=== PATIENT | female | born 1995 | race Caucasian/White ===

== ENCOUNTER 2023-08-27 12:48 | Emergency (ER) | payer OTHER, SELFPAY ==
[2023-08-27 12:55] VITALS: BP 123/84
--- NOTE | 2023-08-27 14:06 | ED.GENMED ---
History of Present Illness
General
Chief Complaint: Musculo-Skeletal Complaint
Source: patient
Time Seen by Provider: 08/27/23 13:27
Travel History
Have you had any contact with someone who has COVID-19?: No
Do you have any symptoms of coronavirus? Fever > 100 degrees, chills, cough, shortness of breath, sore throat, loss of taste or smell, muscle aches, or headache?: No
History of Present Illness
History of Present Illness:
27-year-old female presenting to the emergency department for evaluation of right ankle pain, edema, ecchymosis after slipping on ice yesterday morning, difficulty ambulating since that time. Symptoms worsened this morning prompting her to come to
the ER today. She has been taking Tylenol for pain with some relief. Denies any previous history of injury or surgery. No other concerns.
Past History
Past History
ED Past Medical History: Psychiatric
ED Past Surgical History: Tonsilectomy
Social History
Tobacco: Non-smoker
Alcohol: Occasional
Drug: None
Personal: Single
Living: with family
Review of Systems
Review of Systems
All Other Systems: ROS reviewed and negative except as documented in HPI and ROS
Phy Exam
Physical Exam
Physical Exam:
GENERAL: Alert , in no apparent distress
EYE: conjunctiva clear
Head: Normocephalic atraumatic
NECK: Supple,
ENT: mmm.
LUNGS: no acute respiratory distress
NEUROLOGICAL: Alert and oriented
SKIN: Warm and dry, skin intact.
MUSCULOSKELETAL: Right lower extremity: Mild to moderate soft tissue swelling with ecchymosis along the lateral aspect of the ankle extending into the distal third of the lateral lower leg. There is significant tenderness over the lateral
malleolus. No tenderness at the base of the fifth metatarsal or proximal tib-fib region. No laxity of the calcaneal tendon. Easily palpable pedal and tibial pulses. Cap refill less than 2 seconds. Sensation grossly intact to light touch.
Remainder of extremity is within normal limits and without signs of trauma.
PSYCH: Normal and appropriate interaction.
Scores
Heart Failure Risk
Heart Failure Risk Score: Not Applicable
Heart Score for Chest Pain Patients
STEMI patient?: Not applicable
Withdrawal Assessment of Alcohol
Withdrawal Assessment Completed?: Not applicable
Course
Orders/Labs/Results
Orders:
Orders
08/27/23 13:00
Ankle, Right 3 view CR [CR Ankle - Right Min 3 Views *] Urgent
Comment:
Reason For Exam: pain injury
Vital Signs
Initial and Last Documented VS:
Initial Vital Signs
Temp Pulse Resp BP Pulse Ox
97.4 F 106 16 123/84 95
08/27/23 12:55 08/27/23 12:55 08/27/23 12:55 08/27/23 12:55 08/27/23 12:55
Last Documented Vital Signs
Temp Pulse Resp BP Pulse Ox
97.4 F 106 16 123/84 95
08/27/23 12:55 08/27/23 12:55 08/27/23 12:55 08/27/23 12:55 08/27/23 12:55
Procedures
Splinting/Sling Placement
Right Lower Leg:
Procedure completed by: Clover
Pre-splint extermity exam: neurovascular intact
Type of splint: posterior short leg
Splint material: other (3 inch Ortho-Glass)
Splint checked by provider?: Yes
Normal distal neurovascular exam?: Yes
MDM/Problems Addressed
Differential Diagnosis Includes:
Fracture, sprain, contusion
MDM/Problems Addressed:
27-year-old female presenting the emergency department for evaluation of right ankle injury yesterday after slipping on ice. X-ray was ordered from triage and reveals a lateral malleolus fracture. Patient was splinted as above. RICE
recommendations advised. Information for orthopedics was provided. Patient is otherwise stable for discharge home.
*Critical Care Note
Total Time (30-74mins, 75-104mins- exclusive of procedures): Not Applicable
ED Attending Note
-
Portions of this chart may have been created with voice recognition software.� Occasional wrong word or��sound alike� substitutions may have occurred due to the inherent limitations of voice recognition software.
Discharge Plan
Departure
Patient Disposition: Home (Routine Discharge)
Date of Disposition: 08/27/23
Time of Disposition: 14:06
Patient with high blood pressure during this ER visit?: No
Discharge Problem:
Fracture of lateral malleolus of right ankle
Instructions: Ankle Fracture (DC)
Prescriptions:
No Action
lorazepam 0.5 MG tablet
0.5 mg PO DAILY PRN (Reason: anxiety) Qty: 7 0RF
Referrals:
Mira Adams DO [Family Provider] -
Godwin Manriquez MD [Active] - (Ortho - Call for appointment)
Interventions
Interventions:
*ED COVID-19 Vaccine History Last Done: 08/27/23 12:55
*Nursing Disposition Last Done: 08/27/23 14:13
ED-Musculoskeletal Assessment Last Done: 08/27/23 14:01
Discharge Date and Time
Discharge Date/Time: 08/27/23 14:14
== END 2023-08-27 14:14 | disposition home or self-care (01) ==
LOC: EMR 12:48
PROVIDERS: EMERGENCY PHYSICIAN Student in an Organized Health Care Education/Training Program; FAMILY PHYSICIAN Family Medicine
DX: S82.64XA Nondisplaced fracture of lateral malleolus of right fibula, initial encounter for closed fracture (principal); W00.0XXA Fall on same level due to ice and snow, initial encounter
CPT/HCPCS: 99283; 29515; 73610